=== PATIENT | female | born 1950 | race Caucasian/White ===

== ENCOUNTER 2017-06-05 06:22 | Inpatient (IN) | payer OTHER, BC ==
[2017-05-28 13:17] VITALS: BMI 25.4
[2017-06-05] MEDS ORDERED: oxyCODONE HCL 10 MG SUSTAINED ACTING TABLET PO STA (06:30)
--- NOTE | 2017-06-05 06:30 | HP ---
History & Physical Update - History History: No Change - Physical Physical: No Change - Assessment Assessment: No Change - Plan Plan: No Change (Patient has cervical stenosis C5/5, C6/7 with associated pain/ numbness down RUE --> hand)
[2017-06-05] MEDS ORDERED: oxyCODONE HCL 10 MG SUSTAINED ACTING TABLET ONE (06:39)
[2017-06-05] MEDS ORDERED: THROMBIN (BOVINE) 5,000 UNIT VIAL TP ONE ×3 (07:33→09:21)
[2017-06-05] MEDS ORDERED: LIDOCAINE 1%/EPI 1:100000 (20 ML MULTI DOSE VIAL) ONE (07:33)
[2017-06-05] MEDS ORDERED: ceFAZolin SODIUM 1 GM VIAL ONE ×2 (08:05→08:06)
[2017-06-05] MEDS ORDERED: DEXAMETHASONE SOD PHOSPHATE 4 MG/1 ML VIAL ONE (08:06)
[2017-06-05] MEDS ORDERED: ONDANSETRON 4 MG/2 ML VIAL ONE (08:06)
[2017-06-05] MEDS ORDERED: PROPOFOL 20 ML ONE ×9 (08:06→09:48)
[2017-06-05] MEDS ORDERED: LIDOCAINE HCL/PF 2% SDV 5ML VIAL ONE (08:06)
[2017-06-05] MEDS ORDERED: MIDAZOLAM HCL 2 MG/2 ML SINGLE DOSE VIAL ONE ×2 (08:06)
[2017-06-05] MEDS ORDERED: LIDOCAINE HCL 2% JELLY (5 ML/TUBE) ONE (08:06)
[2017-06-05] MEDS ORDERED: SUCCINYLCHOLINE CHLORIDE 200 MG/10 ML VIAL ONE (08:06)
[2017-06-05] MEDS ORDERED: KETAMINE HCL 200 MG/20 ML VIAL ONE (08:07)
[2017-06-05] MEDS ORDERED: ePHEDrine SULFATE 50 MG/1 ML AMPULE ONE (08:45)
[2017-06-05] MEDS ORDERED: LIDOCAINE 1%/EPI 1:100000 (50 ML MULTI DOSE VIAL) INF ONE (09:20)
[2017-06-05] MEDS ORDERED: GELATIN SPONGE,ABSORBABLE 1 GM PACKET TP ONE (09:21)
[2017-06-05] MEDS ORDERED: HYDROmorphone HCL/PF 1 MG/ML VIAL (FOR PYXIS CHARGING ONLY) ONE (09:53)
[2017-06-05] MEDS ORDERED: ONDANSETRON 4 MG/2 ML VIAL IVPUSH PRN ×2 (10:20→11:03)
[2017-06-05] MEDS ORDERED: oxyCODONE HCL 5 MG TABLET PO PRN ×4 (10:21→11:03)
[2017-06-05] MEDS ORDERED: ACETAMINOPHEN 325 MG TABLET (FP) PO SCH (10:30)
[2017-06-05] MEDS ORDERED: LACTATED RINGERS SOLUTION 1,000 ML IV SCH ×2 (10:30→11:15)
[2017-06-05] MEDS ORDERED: traMADol HCL 50 MG TABLET PO SCH (10:30)
--- NOTE | 2017-06-05 10:59 | OP ---
Operative Note - Note: Operative Date: 06/05/17 Pre-Operative Diagnosis: anterior cervical stenosis Operation: anterior cervical fusion of C5-C6 and C6-C7 Surgeon: Eliceo Norman Cleaner Housekeeping: Radha Beckham Anesthesiologist/TEACHING DIETITIAN: Iona Segundo Anesthesia: General Specimens Removed: disc of C5-C6 and C6-C7 Estimated Blood Loss (mls): 20 Fluid Volume Replaced (mls): 1,500 Operative Report Dictated: Yes
--- NOTE | 2017-06-05 11:00 | SURG ---
Surgery Test Center Manager Note Test Center Manager: Radha Beckham PA-C Date of Service: 06/05/17 Diagnosis: anterior cervical stenosis Procedure: anterior cervial fusion of C5-C6 and C6-C7 I was present for the entirety of the operative procedure. For further detail, please refer to operative report. Visit type - Case Type Case Type: Scheduled Admission - Emergency Emergency Visit: No - New patient This patient is new to me today: Yes Date on this admission: 06/05/17
[2017-06-05] MEDS ORDERED: KETOROLAC TROMETHAMINE 30 MG/1 ML VIAL IVPUSH PRN (11:03)
[2017-06-05] MEDS ORDERED: diazePAM 2 MG TABLET PO PRN (11:07)
--- NOTE | 2017-06-05 12:26 | OP ---
DATE OF OPERATION: 06/05/2017 PREOPERATIVE DIAGNOSIS: Cervical stenosis at C5-C6 at C6-C7. POSTOPERATIVE DIAGNOSIS: Cervical stenosis at C5-C6 and C6-C7. PROCEDURES PERFORMED: 1. Anterior cervical discectomy and fusion at C5-C6. 2. Anterior cervical discectomy and fusion at C6-C7. 3. Placement of instrumentation from C5 to C7. SURGEON: Eliceo Norman MD BASS STRING WINDER: EULA Guaman ESTIMATED BLOOD LOSS: Less than 50 mL. INTRAVENOUS FLUIDS: Per Anesthesia. ANESTHESIA: General. COMPLICATIONS: None. DISPOSITION: The patient was brought to the PACU in stable condition. INDICATIONS FOR SURGERY: The patient is a 67-year-old female who has been suffering from pain from her neck down her arm. X-rays and MRI were completed, which showed that she had cervical stenosis at C5-C6 and C6-C7. She had gone through an exhaustive course of treatment for this, which included medications, physical therapy as well as injections. Unfortunately, her pain continued to persist in spite of all this. At this point, the risks, benefits and alternatives were discussed, and the patient consented to surgery. DESCRIPTION OF PROCEDURE: The patient was brought to the operating room by the Anesthesia staff. After appropriate patient identification was performed, general anesthesia was administered. Appropriate anesthetic lines were placed. SCDs were placed on the patient. Neuromonitoring leads were attached. Her arms were tucked in at the sides. All bony prominences were well-padded at this time. A shoulder roll was placed underneath her neck to extend her neck to the point that she could tolerate it, in the preoperative holding area. A needle was taped onto her neck to drew off the C5-C6 segment. An x-ray was taken to confirm this was correct. The needle was removed. Then 10 mL of lidocaine with epinephrine was injected into her neck at this time. Her neck was prepped and draped in a sterile manner. At this point, a time-out was completed. A 2-inch incision was made in the left side of her neck. Dissection was carried down to the platysma. The platysma was cut in line with the skin incision. Next, the interval between sternocleidomastoid as well as strap muscles was developed. Next, the interval between the carotid sheath as well as tracheal esophagus was developed. Peanuts were used to elevate off the prevertebral fascia. A needle was placed into the C5-C6 disk and an x-ray was taken to confirm this was correct. The needle was removed, and the longus coli muscles were elevated off. Retractor blades were placed in. A [place] pin was placed into the bodies of C5 and C7. The knife was used to incise the disk and the disks were distracted. At this point the microscope was brought in. Using a series of pituitaries, Kerrisons and curets, the diskectomy was completed. The endplates were decorticated at this time. Cages filled with bone graft were placed into the C5-C6 and C6-C7 levels. Distraction was let go. A screw was placed into the bodies C5, C6 and C7. [place] pins were removed. AP and lateral x-rays confirmed the instrumentation to be in good position. Final tightening was performed. The platysma was closed with 2-0 Vicryl suture. The skin was closed with 3-0 Monocryl suture. Dermabond was applied. Steri-Strips were applied. A sterile dressing was applied. The patient was placed supine on the OR bed, extubated in the OR and brought to the PACU in stable condition. Héctor MONTES DE [id number]
[2017-06-05] MEDS: CEFAZOLIN 1 GM/D5W 1 GRAM/50 ML BAG IVPB SCH ×2 (17:12→23:46)
[2017-06-05] MEDS: ACETAMINOPHEN 325 MG TABLET (FP) PO SCH ×2 (17:13→23:47)
[2017-06-05] MEDS: traMADol HCL 50 MG TABLET PO SCH ×2 (17:14→23:47)
[2017-06-06 06:20] VITALS: BP 148/83; PULSE 79; TEMP 98
[2017-06-06] MEDS: ACETAMINOPHEN 325 MG TABLET (FP) PO SCH (06:50)
[2017-06-06] MEDS: traMADol HCL 50 MG TABLET PO SCH (06:51)
--- NOTE | 2017-06-06 09:02 | PN ---
Progress Note (short form) - Note Progress Note: 67F POD1 s/p ACDF under [facility] doing well. Pt states that pain is well controlled, reports no anesthetic complications. Sensory and motor function is intact in all 4 extremities.
--- NOTE | 2017-06-06 09:36 | DS ---
Physical Exam: SUBJECTIVE: Patient seen and examined she states that her right arm is improved. No difficulties swallowing. No SOB. OBJECTIVE: Vital Signs Temperature 98.0 F 06/06/17 06:00 Pulse Rate 79 06/06/17 06:00 Respiratory Rate 20 06/06/17 06:00 Blood Pressure 148/83 06/06/17 06:00 O2 Sat by Pulse Oximetry (%) 98 06/06/17 06:18 PHYSICAL EXAM GENERAL: The patient is awake, alert, and fully oriented, in no acute distress. NECK: Trachea midline,dressing c/d/i, no masses. Soft collar in place. Neuro: [employer] Architect strength equal b/l. Flexion/extension to upper ext 5/5 b/l. Shoulder shrug equal b/l. LABS HOSPITAL COURSE: Date of Admission:06/05/17 Date of Discharge: 06/06/17 The patient was admitted to the Med-Surg Unit after an elective repair of their cervical stenosis. Now, s/p C5-C6 &C6-C7 anterior cervical fusion.The day of surgery, the patient ambulated the hallways with assistance. Narcotic and non- narcotic pain management control was achieved with an oral and IV approach. An xray was obtained and confirmed hardware placement at C5-C6 and C6-C7, no fractures or dislocations. Gypsy-operative IV ABX were administered. DVT prophylaxis was achieved with SCDs and early ambulation. The patient ambulated with Physical Therapy and no services were recommended upon discharge. Narcotic scripts and or muscle relaxants were checked with [facility] prior to escibe. The discharge instructions and an oral pain management plan were reviewed with the patient. All questions answered. Above plan discussed with Dr. Norman and agreed . Minutes to complete discharge: 20 <Radha Beckham - Last Filed: 06/06/17 14:36> Physical Exam: SUBJECTIVE: Patient seen and examined OBJECTIVE: Vital Signs Temperature 98.0 F 06/06/17 06:00 Pulse Rate 79 06/06/17 06:00 Respiratory Rate 20 06/06/17 06:00 Blood Pressure 148/83 06/06/17 06:00 O2 Sat by Pulse Oximetry (%) 98 06/06/17 06:18 PHYSICAL EXAM GENERAL: The patient is awake, alert, and fully oriented, in no acute distress. HEAD: Normal with no signs of trauma. EYES: PERRL, extraocular movements intact, sclera anicteric, conjunctiva clear. ENT: Ears normal, nares patent, oropharynx clear without exudates, moist mucous membranes. NECK: Trachea midline, full range of motion, supple. LUNGS: Breath sounds equal, clear to auscultation bilaterally, no wheezes, no crackles, no accessory muscle use. HEART: Regular rate and rhythm, S1, S2 without murmur, rub or gallop. ABDOMEN: Soft, nontender, nondistended, normoactive bowel sounds, no guarding, no rebound, no hepatosplenomegaly, no masses. EXTREMITIES: 2+ pulses, warm, well-perfused, no edema. NEUROLOGICAL: Cranial nerves II through XII grossly intact. Normal speech, gait not observed. PSYCH: Normal mood, normal affect. SKIN: Warm, dry, normal turgor, no rashes or lesions noted. LABS HOSPITAL COURSE: Date of Admission:06/05/17 Date of Discharge: 06/06/17 The patient was admitted to the Med-Surg Unit after an elective repair of their C5-7 herniated discs. The day of surgery, the patient ambulated the hallways with assistance. Narcotic and non-narcotic pain management control was achieved with an oral and IV approach. POD #1, the surgical drain was removed fully intact and without incident. An xray was obtained and confirmed hardware placement at C5-7, no fractures or dislocations. Gypsy-operative IV ABX were administered. DVT prophylaxis was achieved with SCDs and early ambulation. The patient ambulated with Physical Therapy and no services were recommended upon discharge. Narcotic scripts and or muscle relaxants were checked with [facility] prior to escibe. The discharge instructions and an oral pain management plan were reviewed with the patient. All questions answered. Above plan discussed with Dr. Norman and agreed. <Eliceo Norman - Last Filed: 06/06/17 16:59> Visit type - Case Type Case Type: Scheduled Admission - Emergency Emergency Visit: No - New patient This patient is new to me today: No <Radha Beckham - Last Filed: 06/06/17 14:36>
--- NOTE | 2017-06-09 14:53 | PATH ---
Surgical Pathology Report Patient Name: BEAU SHERMAN Med. Rec. #: [id number] /Age/Gender: 1950 (Age: 67) / F Account: [id number] Location: [facility] MED[facility] Taken: 06/05/2017 Received: 06/05/2017 Reported: 06/09/2017 Physicians: Eliceo Norman M.D. Specimen(s) Received C5-C6, C6-C7 DISCS Clinical History Cervical stenosis Final Diagnosis C5-6, C6-7 DISCS, DISCECTOMY: CARTILAGE WITH DEGENERATIVE CHANGES. BONE WITH NO PATHOLOGIC FINDINGS. Electronically Signed Jessie Adams M.D. Gross Description Received in formalin labeled "C5-6, C6-7 discs," is a 2.5 x 2.0 x 0.3 cm aggregate of linda fragments of fibrocartilaginous tissue and possible bone. The specimen is entirely submitted in one cassette, following decalcification. /06/06/2017 saudi06/06/2017
== END 2017-06-06 10:40 | disposition home or self-care (01) | DRG 473 ==
LOC: FM/S 06:22 → EDSTATUS 08:15 → FM/S 12:00
PROVIDERS: ADMIT Orthopaedic Surgery Orthopaedic Surgery of the Spine; ATTEND Orthopaedic Surgery Orthopaedic Surgery of the Spine
PROC: 0RG20A0 Fusion of 2 or more Cervical Vertebral Joints with Interbody Fusion Device, Anterior Approach, Anterior Column, Open Approach (ICD-10-PCS; 2017-06-05)
PROC: 0RB30ZZ Excision of Cervical Vertebral Disc, Open Approach (ICD-10-PCS; principal; 2017-06-05 09:12)
DX: M48.02 Spinal stenosis, cervical region (principal); K21.9 Gastro-esophageal reflux disease without esophagitis; K44.9 Diaphragmatic hernia without obstruction or gangrene
CPT/HCPCS: 72050-TC; 88304-TC; 94010; 94760; 97116-GP; 97161-GP